=== PATIENT | male | born 1995 | race African-American/Black ===

== ENCOUNTER 2019-02-05 01:42 | Emergency (ER) | payer SELFPAY ==
[2019-02-05 01:49] VITALS: BP 180/105; PULSE 92; RESP 22; TEMP 37; O2SAT 99
[2019-02-05 02:10] LABS: Absolute Basophil Count 0.02 k/cumm (0.0-0.2); Absolute Eosinophil Count 0.06 k/cumm (0.0-0.7); Absolute Lymphocyte Count 2.05 k/cumm (1.2-3.4); Absolute Monocyte Count 0.48 k/cumm (0.11-0.7); Absolute Neutrophil Count 4.11 k/cumm (1.2-6.7); Basophils % 0.3; Eosinophils % 0.9; HCT 40.6 % (40.0-50.0); HGB 13.9 g/dL (13.5-17.5); Lymphocytes % 30.5; Mean Corp. HGB Concentration 34.2 g/dL (32.0-36.0); Mean Corpuscular Hemoglobin 27.3 pg (27.0-33.0); Mean Corpuscular Volume 79.6 fL (80-95); Mean Platelet Volume 9.4 fL (8.0-11.0); Monocytes % 7.1; Neutrophils % 61.2; Platelet Count 265 x1000/uL (130-400); RBC Distribution Width 14.5 % (11.8-14.1); White Blood Cell Count 6.72 k/cumm (4.4-10.8)
--- NOTE | 2019-02-05 02:28 | ED.GENADUL_ITS ---
Discharge Plan Disposition Patient Disposition: HOME Condition: Good Discharge Details Chief Complaint: PsychEval Clinical Impression: Depression, Laceration Primary Care Provider: None,None ED Provider: Kris Ortiz Home Meds and New Rx's Prescriptions: No Action No Known Home Meds RF: 0 Discharge Instructions Instructions: Care For Your Stitches (ED) Additional Instructions: Please leave the dressing on for 24 hours, then you may remove and begin cleaning the wound at least twice a day with soap and water. Do not directly soak the area. Watch for any signs of infection and return if any increasing redness, swelling, pain, drainage. Please return in 7 to 10 days to have the sutures removed. It is free of charge if you come back here to the ED. If you have any thoughts of self-harm, or you feel that you need assistance please return immediately for reassessment, help and assistance. Please follow- up with the professor of social work have been set up for you. If you notice any worsening of your symptoms, or any new symptoms such as vomiting, diarrhea, fever, chills, shortness of breath, chest pain, numbness, weakness, or fainting , please return immediately to the emergency department for reevaluation. Please follow up with your primary care provider as soon as possible for reassessment and reevaluation. As always, it was a pleasure participating in your medical care today. Medical Decision Making This is a 23-year-old male who presents with a self-imposed left wrist injury. Earlier today secondary to multiple stressors at home the patient cut his left wrist. He is right-hand dominant. Notable separation between the skin and fascial layers. No evidence of deep tendon, nerve or vessel involvement. He did not tend to harm himself. He denies any homicidal ideations. He denies trying to harm himself in any other ways. He denies any other illicit or alcohol drug use. Physical exam demonstrates a laceration contained to the skin levels, he demonstrates notably intact neurovascular exam with brisk capillary refill normal pulses, normal movement and strength of the hand wrist and fingers. Normal two-point discrimination. The area was sutured, with good wound edge reapproximation. His tetanus will be updated. We we will contact mental health for evaluation, start one-to-one observation, and order customary labs. Currently the patient is asking for help and assistance. He states that right now he does not want to take his life or harm himself anymore. 4 AM The patient has been seen and assessed by mental health. After prolonged discussion the patient still continues to deny any current homicidal or suicidal ideations. Mental health has spent a notable amount of time talking with the patient, discussing his thoughts, focusing on areas of need, and addressing them. At this time they do feel that he can be safely discharged home with close outpatient follow-up. The patient also feels comfortable with this as does his friends were at bedside. Patient will be discharged with close and follow-up. We discussed red flags for which to return, as well as treatment for his sutures. Recommend that he returns in 7 to 10 days for suture removal. I have extensively reviewed the treatment plan and discharge instructions with the patient. I have addressed all patient concerns at this time. The patient was made aware of what symptoms to monitor for that would warrant a return to the emergency department. Discussed the plan with the patient, they demonstrate verbal understanding and agreement with our assessment and plan at this time. Procedure: Suture Patient was positioned appropriately, 5cc lidocaine without epinephrine was used as a local anesthetic. Copious amounts of normal saline and chlorhexidine used for irrigation. Patient was sterile draped with wound exposed. 4-0 nylon with 7 simple interrupted sutures were placed with good approximation. Wound dressed with bacitracin/ sterile gauze. Estimated Blood Loss: 1ml The patient tolerated the procedure well and there were no complications. HPI General Date/Time Provider Initiated Documentation: 02/05/19 01:43 . HPI Narrative: This is a 23-year-old male who presents today for evaluation of left wrist injury and self-harm. Patient states that he has had a tremendous amount of stressors in his life as of late, and today slit his left wrist and attempt to hurt himself. He did cut his left wrist with a clean knife today. He denies any associated numbness or tingling. He denies any weakness in his hand. He is right-hand dominant. Patient states that currently he does not want to end his life, but he has had very confusing thoughts, and certainly wants to harm himself. He denies any homicidal ideations. He denies any auditory visual hallucinations. He denies any significant alcohol intake, or IV or illicit drug use recently. He denies any previous attempts at self-harm. Patient is unsure of his last tetanus shot. Related Data Home Medications Medication Instructions Recorded Confirmed Unknown [No Known Home Meds] 10/26/16 06/05/17 Allergies Allergy/AdvReac Type Severity Reaction Status Date / Time No Known Allergies Allergy Unverified 02/05/19 01:55 General Stated Complaint: PsychEval BRITT: 2 Review of Systems All systems reviewed & are unremarkable except as noted in HPI and below PFSH Social History Smoking/Tobacco Use Status: Current-Occasional Alcohol Intake: current Do you feel safe in your relationship?: Yes Exam Narrative Exam Narrative: 1.Const: Well-nourished, Well-developed, appearing stated age 2.Eyes: PERRL, no conjunctival injection, and symmetrical lids. 3.ENT: Atraumatic external nose and ears. Moist MM. Neck: Symmetric, trachea midline, No thyromegaly. 4.CVS: +S1/S2, No murmurs or gallops. Peripheral pulses 2+ and equal in all extremities. Brisk capillary refill in all extremities. 5.RESP: Unlabored respiratory effort. Clear to auscultation bilaterally. No wheezes rales or rhonchi 6.GI: Soft, Nontender/Nondistended, No hepatosplenomegaly. No guarding or rebound. 7.MSK: Left wrist demonstrates a linear 5.5 cm laceration over the ventral wrist, less rates the epidermis and dermis, and is clearly well differentiated from the fascia, tendons and ligaments. Minimal active bleeding. No evidence of tendon involvement. Left hand: Symmetrically palpable radial and ulnar pulses. Capillary refill less than 2 seconds to all digits. Intact sensation to light touch of the radial, median and ulnar nerves demonstrated by testing in the dorsal web space of the thumb, the distal palmar aspect of the index finger, and the lateral surface of the fifth finger. 2 point discrimination intact to 5mm (up to 6mm can be normal in digits 3-5) of discrimination in the affected digit. Intact motor function of the radial, median and ulnar nerves demonstrated by strength of extension of the isolated distal joint of the index finger, hand repairer welding equipment, and spreading of the 2nd through 5th digits. Intact recurrent median nerve as demonstrated by ability to move thumb fully through opposition, abduction and flexion. No snuffbox tenderness. 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 Sensation grossly intact, no focal neurologic deficits. 10.Psych: (AAO) x3. Flat affect, slightly depressed. Course Vital Signs Vital signs: Vital Signs Temperature 37.0 C 02/05/19 01:49 Pulse 92 H 02/05/19 01:49 Respiratory Rate 22 02/05/19 01:49 Blood Pressure 180/105 H 02/05/19 01:49 Pulse Oximetry 99 02/05/19 01:49 Temperature 37.0 C 02/05/19 01:49 Temperature Source Temporal Artery Scan 02/05/19 01:49 Pulse 92 H 02/05/19 01:49 Respiratory Rate 22 02/05/19 01:49 Respiratory Effort Non-Labored 02/05/19 01:56 Blood Pressure 180/105 H 02/05/19 01:49 Blood Pressure Position Sitting 02/05/19 01:49 Pulse Oximetry 99 02/05/19 01:49 Oxygen Delivery Method Room Air 02/05/19 01:49 Oxygen Flow Rate 0 02/05/19 01:49 Pain Level 0 02/05/19 02:11 Lab/Test Results Lab/Test Results: Laboratory Tests Range/Units 02/05/19 02:05 WBC (4.4-10.8) k/cumm 6.72 RBC (4.50-6.00) m/cumm 5.10 Hgb (13.5-17.5) g/dL 13.9 Hct (40.0-50.0) % 40.6 MCV (80-95) fL 79.6 L MCH (27.0-33.0) pg 27.3 MCHC (32.0-36.0) g/dL 34.2 RDW (11.8-14.1) % 14.5 H Plt Count (130-400) x1000/uL 265 MPV (8.0-11.0) fL 9.4 Immature Gran % 0.0 Neutrophils % 61.2 Lymphocytes % 30.5 Monocytes % 7.1 Eosinophils % 0.9 Basophils % 0.3 Absolute Neutrophils (1.2-6.7) k/cumm 4.11 Absolute Lymphocytes (1.2-3.4) k/cumm 2.05 Absolute Monocytes (0.11-0.7) k/cumm 0.48 Absolute Eosinophils (0.0-0.7) k/cumm 0.06 Absolute Basophils (0.0-0.2) k/cumm 0.02 Procedures Laceration Laceration 1: Site: hand Side (If applicable): left Size (cm): 5.5 Description: linear Depth: simple, single layer Local Anesthetic: Lidocaine 1% Amount of anesthesia used (mL): 5 Pre-repair: wound explored, irrigated extensively and deep structures intact Skin layer closed with: nylon Size (cm): 4-0 Number of sutures: 7 Technique: simple, interrupted
[2019-02-05 02:33] LABS: ALT 36 U/L (16-63); AST 25 U/L (15-37); Albumin 4.3 g/dL (3.4-5.0); Alkaline Phosphatase 96 U/L (46-116); Anion Gap 10.7 mmol/L (3-11); BUN 7 mg/dL (7-18); Bilirubin, Total 0.2 mg/dL (0.2-1.0); CO2 24.3 mmol/L (21.0-32.0); CREATININE 0.99 mg/dL (0.70-1.30); Calcium 9.1 mg/dL (8.5-10.1); Chloride 105 mmol/L (98-107); Glucose 106 mg/dL (70-100); Potassium 3.5 mmol/L (3.5-5.1); Sodium 140 mmol/L (136-145); TSH (W/Ref FT4) 3.24 uIU/mL (0.36-3.74); Total Protein 8.3 g/dL (6.4-8.2)
[2019-02-05 02:34] LABS: Salicylate < 2.8 mg/dL (2.8-20.0)
[2019-02-05 02:45] LABS: Acetaminophen < 2 ug/mL (10-30)
[2019-02-05 03:05] LABS: *AMPHETAMINES SCREEN URINE Negative (Negative); *BARBITURATES SCREEN URINE Negative (Negative); *BENZODIAZEPINES SCREEN URINE Negative (Negative); Cannabinoids THC POSITIVE (Negative); Cocaine Screen,Urine Negative (Negative); METHADONE URINE SCREEN Negative (Negative); OPIATES URINE SCREEN Negative (Negative); Tricyclic Antidepressants Negative (Negative)
--- NOTE | 2019-02-05 04:02 | PDOC.MHCN ---
Date of service: 02/05/19 Time of Service: 04:03 Mental Health Crisis Note Presenting Issue How did you arrive at the ED and why did you come: A arrived tonight via his friends. He is here after cutting his L wrist superficially. Precipitating Factors A admits that he was SI when he cut himself tonight but denied that he is now. He denied any hx of MH treatment. Disposition BEHAVIOR: Cooperative and engaged. EYE CONTACT: Good MOOD: depressed and anxious about upcoming court. AFFECT: flat APPETITE: A reported poor SLEEP(trouble falling/staying asleep: A denied he is getting much sleep Plan A is going home with his friends. His sister is coming later today and is going to assit him wiht applying for food stamps and medicaid. He was given numbers for NK should he feel SI again and for ongoing support if he needs. Provisional Diagnosis Depressive d/o unspecified Signature Clinician's Name/Title: Nellie Torres MS Emergency Services Clinician
[2019-02-05 04:21] VITALS: BP 148/84; PULSE 76; RESP 18; O2SAT 99
== END 2019-02-05 04:15 | disposition home or self-care (01) ==
PROVIDERS: Emergency Provider Student in an Organized Health Care Education/Training Program
DX: S61.512A Laceration without foreign body of left wrist, initial encounter (principal); F32.9 Major depressive disorder, single episode, unspecified; X78.1XXA Intentional self-harm by knife, initial encounter
CPT/HCPCS: 12002; 36415; 80053; 80307; 90471; 99284; 80320; 80329; 84443; 85025

== ENCOUNTER 2019-02-11 03:39 | Emergency (ER) | payer SELFPAY ==
[2019-02-11 03:43] VITALS: BP 145/94; PULSE 68; RESP 16; TEMP 36.5; O2SAT 100
--- NOTE | 2019-02-11 03:46 | ED.GENADUL_ITS ---
Discharge Plan Disposition Patient Disposition: HOME Condition: Good Discharge Details Chief Complaint: GenMedical Clinical Impression: External hemorrhoids Primary Care Provider: None,None ED Provider: Kris Ortiz Home Meds and New Rx's Prescriptions: New hydrocortisone [Anusol-HC] 2.5 % cream with perineal applicator 1 applic ND BID-QID PRN (Reason: hemorrhoids) Qty: 28.35 RF: 0 docusate sodium [Colace] 100 mg capsule 100 mg PO BID Qty: 60 RF: 0 Discharge Instructions Instructions: Hemorrhoids (ED) Additional Instructions: At this time you do have notable hemorrhoids. Please make sure that you keep your stool soft at all times with the Colace. Apply the hydrocortisone cream as directed. I would recommend taking hot baths tonight to help reduce the irritation and inflammation. He can also take Tylenol and Motrin as needed for pain and irritation. Please avoid any heavy lifting greater than 10 to 15 pounds. We will schedule a surgical follow-up for you for potential band ligation of the hemorrhoids. If you notice any worsening of your symptoms, or any new symptoms such as vomiting, diarrhea, fever, chills, shortness of breath, chest pain, numbness, weakness, or fainting , please return immediately to the emergency department for reevaluation. Please follow up with your primary care provider as soon as possible for reassessment and reevaluation. As always, it was a pleasure participating in your medical care today. Stand Alone Forms: Work Release Medical Decision Making This is a 21-year-old male who presents for evaluation of hemorrhoids. He recently went back to work and states that he has been doing some significant straining she is caused notable hemorrhoids. He describes it as an irritating sensation. Physical exam demonstrates 2 small to medium sized slightly tense hemorrhoids in the rectum, no evidence of rectal prolapse, bleeding or other abnormality. Hemorrhoids are not easily reduced. However there certainly none are large enough to require immediate or emergent excision or band ligation. We will prescribe Colace, hydrocortisone topical cream, recommend regular sitz baths, no heavy lifting greater than [address] to [address] a surgical referral for potential band ligation. Discussed the importance of adequate flui ds to prevent constipation or straining. I have extensively reviewed the treatment plan and discharge instructions with the patient. I have addressed all patient concerns at this time. The patient was made aware of what symptoms to monitor for that would warrant a return to the emergency department. Discussed the plan with the patient, they demonstrate verbal understanding and agreement with our assessment and plan at this time. HPI General Date/Time Provider Initiated Documentation: 02/11/19 03:39 . HPI Narrative: This is a 23-year-old male who presents today for evaluation of hemorrhoids. The patient states that he has been doing some significant straining as of late which is subsequently caused a hemorrhoid and subsequent irritation. He has not done anything to help with the symptoms. He denies any bleeding. He denies any recent diarrhea. Stool is slightly firmer. He states that he went back to work today and really pushed himself, and with significant straining had notable worsening of his hemorrhoids. He denies any other complaints at this time. No other modifying factors. Related Data Home Medications Medication Instructions Recorded Confirmed docusate sodium [Colace] 100 mg PO BID #60 cap 02/11/19 hydrocortisone [Anusol-HC] 1 applic ND BID-QID PRN #28.35 gm 02/11/19 Previous Rx's Medication Instructions Recorded docusate sodium [Colace] 100 mg PO BID #60 cap 02/11/19 hydrocortisone [Anusol-HC] 1 applic ND BID-QID PRN #28.35 gm 02/11/19 Allergies Allergy/AdvReac Type Severity Reaction Status Date / Time No Known Allergies Allergy Unverified 02/05/19 01:55 General BRITT: 2 Review of Systems All systems reviewed & are unremarkable except as noted in HPI and below PFSH Social History Smoking/Tobacco Use Status: Current-Occasional Alcohol Intake: never Substance use type: marijuana Do you feel safe at home: Yes Do you feel safe in your relationship?: Yes Exam Narrative Exam Narrative: 1.Const: Well-nourished, Well-developed, appearing stated age 2.Eyes: PERRL, no conjunctival injection, and symmetrical lids. 3.ENT: Atraumatic external nose and ears. Moist MM. Neck: Symmetric, trachea midline, No thyromegaly. 4.CVS: +S1/S2, No murmurs or gallops. Peripheral pulses 2+ and equal in all extremities. Brisk capillary refill in all extremities. 5.RESP: Unlabored respiratory effort. Clear to auscultation bilaterally. No wheezes rales or rhonchi 6.GI: Soft, Nontender/Nondistended, No hepatosplenomegaly. No guarding or rebound. Rectal exam was performed with female nurse at bedside. Rectum demonstrated no evidence of rectal prolapse. The patient did have 2 small slightly tense hemorrhoids which are not easily reduced. No active bleeding. Mild tenderness and irritation on palpation. No other significant abnormality in the rectal exam. 7.MSK: Normocephalic/Atraumatic, Extremities w/o deformity or ttp No cyanosis or clubbing, Normal movement of all extremities 8.Skin: Warm, Dry. No rashes or lesions. Patient's left wrist appears to be healing very well, sutures are intact, skin is clean dry and intact. We will reapproximated skin with no evidence of infection drainage or discharge. 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 Sensation grossly intact, no focal neurologic deficits. 10.Psych: (AAO) x3. Appropriate mood and affect
--- NOTE | 2019-02-11 03:55 | NUR.NOTE ---
Examined by MD Ortiz, discharge instructions reviewed with verbal understanding. aware to f/u with pcp and surgery. scripts given to pt. Ambulated to exit with steady gait
--- NOTE | 2019-02-11 20:15 | NUR.NOTE ---
Nursing Note: FAXED REFERAL 02/11/19
== END 2019-02-11 03:55 | disposition home or self-care (01) ==
LOC: ER 03:58
PROVIDERS: Emergency Provider Student in an Organized Health Care Education/Training Program
DX: K64.9 Unspecified hemorrhoids (principal)
CPT/HCPCS: 99282

== ENCOUNTER 2022-08-18 16:31 | Emergency (ER) | payer SELFPAY ==
--- NOTE | 2022-08-18 16:34 | ED.GENADUL_ITS ---
Discharge Plan Disposition Patient Disposition: Home Condition: Stable Discharge Details Clinical Impression: Exposure to STD Primary Care Provider: None,None ED Provider: Javad Driscoll Home Meds and New Rx's Prescriptions: New doxycycline hyclate 100 mg capsule 100 mg PO BID 7 Days Qty: 14 0RF Discharge Instructions Instructions: Sexually Transmitted Diseases (ED) Additional Instructions: Please follow-up with primary care physician. Please return to the emergency department for any worsening symptoms Medical Decision Making 26-year-old male presents with new sexual partner. New sexual partner is being treated empirically for gonococcal versus chlamydial infection. Patient would like to receive prophylactic antibiotics. Nontoxic resting comfortably. No acute distress. Will treat empirically with ceftriaxone and doxycycline. HPI General Date/Time Provider Initiated Documentation: 08/18/22 16:32 . HPI Narrative: 26-year-old male presents with new sexual partner who potentially has STI. Patient has no symptomatology at this time. Related Data Home Medications Medication Instructions Recorded Confirmed doxycycline hyclate 100 mg capsule 100 mg PO BID 7 days #14 caps 08/18/22 Previous Rx's Medication Instructions Recorded doxycycline hyclate 100 mg capsule 100 mg PO BID 7 days #14 caps 08/18/22 Allergies Allergy/AdvReac Type Severity Reaction Status Date / Time No Known Allergies Allergy Unverified 08/18/22 16:39 General BRITT: 2 Review of Systems Narrative: Review of Systems Constitutional: negative Eyes: negative ENT: negative Cardiovascular: negative Respiratory: negative Gastrointestinal: negative : negative Musculoskeletal: negative Skin: negative Neurologic: negative Psych: negative PFSH All Active Problems (Updated 08/18/22 @ 16:41 by Javad Driscoll MD) Exposure to STD (Acute) Social History Smoking/Tobacco Use Status: Current-Occasional Smoking risk assessment performed?: Yes Alcohol Intake: never Substance use type: marijuana Do you feel safe at home: Yes Do you feel safe in your relationship?: Yes Exam Narrative Exam Narrative: Physical Examination General: alert, awake, cooperative, resting comfortably, no acute distress
[2022-08-18 16:36] VITALS: BP 132/78; PULSE 60; RESP 14; TEMP 37.2; O2SAT 99
[2022-08-18] MEDS: Doxycycline Hyclate 100 MG CAP PO (17:12)
[2022-08-18] MEDS: cefTRIAXone 1 GM VIAL 0.5 GM IM (17:12)
[2022-08-18] MEDS: Lidocaine 1% Pres-Free 5 ML VIAL (17:12)
[2022-08-18 17:13] VITALS: BP 122/78; PULSE 75; RESP 18; TEMP 36.8; O2SAT 99
[2022-08-20 12:42] LABS: Chlamydia Result Negative (Negative); GC Result Negative (Negative)
== END 2022-08-18 17:14 | disposition home or self-care (01) ==
PROVIDERS: Emergency Provider Emergency Medicine
DX: Z20.2 Contact with and (suspected) exposure to infections with a predominantly sexual mode of transmission (principal)
CPT/HCPCS: 87491; 87591; 96372; 99283; 81003; J0696

== ENCOUNTER 2023-04-12 23:12 | Emergency (ER) | payer SELFPAY ==
[2023-04-12 23:16] VITALS: BP 169/82; PULSE 108; RESP 18; TEMP 36.6; O2SAT 97
--- NOTE | 2023-04-12 23:30 | RT.EKG_ITS ---
APPROVED REPORT Exam: Resting ECG Reason for Exam: chest pain Patient Location: E HR:93 bpm ECG Measurements Heart Rate 93 AXIS GA 127 P 46 QRSd 91 QRS 41 QT 340 T 24 QTc 422 Conclusion Sinus rhythm...normal P axis, V-rate 60- [address] segment or T wave abnormlaiteis to suggest occlusive NH.
--- NOTE | 2023-04-12 23:30 | DI.RAD_ITS ---
Exam(s) XR CHEST 2V PA LATERAL EXAM: XR CHEST 2V PA LATERAL CLINICAL HISTORY: chest pain, COVID + TECHNIQUE: 2D digital imaging was performed of the chest. Images were obtained. PA and lateral v iews were obtained. COMPARISON: CT CT CHEST PE CTA from 04/13/2023 FINDINGS: MEDIASTINUM: Normal. HEART: Normal. PULMONARY VASCULATURE: Normal. LUNGS: Clear. The patient's left upper lobe and lingular infiltrates are best appreciated on the CT scan of the chest. PLEURAL SPACE: No pleural effusion or pneumothorax. BONE:Within normal limits for the patient's age. OTHER FINDINGS:Normal. IMPRESSION: No acute pulmonary findings. The patient's left upper lobe and lingular infiltrates are best apprecia jasmin on the CT scan of the chest. DATA REPOSITORY: RADIATION DOSE DELIVERED:
--- NOTE | 2023-04-12 23:40 | W.ED.GENAD ---
HPI General Stated Complaint: RespSymp Mode of arrival: ambulatory. BRITT: 4 Date/Time Provider Initiated Documentation: 04/12/23 23:14. Limitations to Documentation: no limitations. Information obtained by: patient. HPI Narrative: 27yo previously healthy male tested + for Covid on 04/09/22 presenting with generalized malaise, body aches, chills, cough, and chest pain. Pain is dull, substernal, tight, constant, non-radiating, and slightly worse with deep inspiration. Mild shortness of breath, worse with exertion. No LE edema. He is otherwise in his usual state of health. Related Data Allergies Allergy/AdvReac Type Severity Reaction Status Date / Time No Known Allergies Allergy Unverified 08/18/22 16:39 Review of Systems Narrative: see HPI PFSH All Active Problems (Updated 04/12/23 @ 23:50 by Ana Lilia Lopez MD) COVID-19 (Acute) Social History Smoking/Tobacco Use Status: Current-Occasional Smoking risk assessment performed?: Yes Alcohol Intake: never Substance use type: marijuana Do you feel safe at home: Yes Do you feel safe in your relationship?: Yes Exam Narrative Exam Narrative: General: Alert, well appearing, well nourished, in no acute distress. Head: Normocephalic, atraumatic Neck: Trachea midline, ?Neck supple. Cardiac: ?RRR, no murmurs appreciated Resp: No respiratory distress. CTAB. Abd: ?Soft, non-distended, nontender Extremities: ?No deformities.? No peripheral edema. Neurologic: GCS 15. ? Moves all extremities freely against gravity Course Vital Signs Vital signs: Vital Signs Temperature 36.6 C 04/12/23 23:16 Pulse 108 H 04/12/23 23:16 Respiratory Rate 18 04/12/23 23:16 Blood Pressure 169/82 H 04/12/23 23:16 Pulse Oximetry 97 04/12/23 23:16 Temperature 36.6 C 04/12/23 23:16 Temperature Source Oral 04/12/23 23:16 Pulse 108 H 04/12/23 23:16 Respiratory Rate 18 04/12/23 23:16 Respiratory Effort Normal 04/12/23 23:22 Respiratory Depth Normal 04/12/23 23:22 Blood Pressure 169/82 H 04/12/23 23:16 Blood Pressure Position Sitting 04/12/23 23:16 Pulse Oximetry 97 04/12/23 23:16 Oxygen Delivery Method Room Air 04/12/23 23:16 Oxygen Flow Rate 0 04/12/23 23:16 Pain Level 8 04/12/23 23:16 Medical Decision Making 27yo previously healthy male tested + for Covid on 04/09/22 presenting with generalized malaise, body aches, chills, cough, and chest pain. Slightly tachycardiac after ambulating into triage and hypertensive on arrival, afebrile. No hypoxia, tachypnea, or increased work of breathing. Well appearing on exam. No respiratory distress. Given tylenol for symptoms. Low suspicion for ACS or PE however given symptoms will eval with labs, EKG, CXR. EKG sinus rhythm, no ST segment or T wave abnormalities to suggest occlusive [place]. CXR independently reviewed, no focal pneumonia or pneumothorax on my view, agree with radiology read below. Labs reviewed as below, CBC & CMP reassuring (mild leukocytosis), trop negative in the setting of 2 days of constant pain, would not further pursue ACS. Dimer slightly elevated; CTA ordered and independently reviewed, no saddle embolus on my view, agree with radiology read below. Limited study however based on symptoms/vital signs low suspicion for any significant pulmonary embolism. No risk factors to suggest benefit from Paxlovid. On reassessment he remains non-toxic appearing with reassuring vital signs, tachycardia resolved. Advised to followup with PCP regarding blood pressure, symptomatic treatment at home. Discharged home, discharge instructions and return precautions were reviewed with patient who verbalized understanding. All questions were answered and he is in full agreement with the plan. Imaging Data Radiologic Study: Imaging: X-Ray Radiologist's impression: IMPRESSION: 1. No active cardiopulmonary disease. Radiologic Study #2: Imaging: CT Scan Radiologist's impression: IMPRESSION: 1. Scattered patchy ground-glass opacities within the lungs. These findings are nonspecific and may represent hypoventilatory change,edema, hemorrhage, or an infectious/inflammatory process (acute or chronic). 2. There are diffuse interstitial infiltrates present. This may represent cardiogenic versus noncardiogenic edema. An acute inflammatory process and/or infectious process/pneumonia are not excluded. 3. Motion artifact limits this study and the results are insufficient for definitive exclusion of peripheral pulmonary emboli beyond the first and second order pulmonary arterial branches. No central or saddle emboli noted. No evidence of central lobar occlusive emboli. Segmental emboli cannot be ruled out. 4. Mildly enlarged lymph nodes present within the axillary regions bilaterally. Lab Data Lab results reviewed: Yes I reviewed the patient's lab results. Labs: Laboratory Tests Range/Units 04/12/23 04/12/23 23:19 23:54 WBC (4.4-10.8) 10^3/uL 12.77 H RBC (4.36-5.78) 10^6/uL 5.17 Hgb (13.5-17.5) g/dL 13.6 Hct (40.0-50.0) % 42.1 MCV (80-95) fL 81 MCH (27.0-33.0) pg 26.3 L MCHC (32.0-36.0) % 32.3 RDW (11.8-14.1) % 13.6 Plt Count (130-400) 10^3/uL 312 MPV (8.0-11.0) fL 9.4 Immature Gran % 0.0 Neutrophils % 80.0 Lymphocytes % 13.0 Monocytes % 5.0 Eosinophils % 2.0 Basophils % 0.0 Nucleated RBC % (0.0-0.3) % 0.0 Absolute Neutrophils (1.2-6.7) 10^3/uL 10.22 H Absolute Lymphocytes (1.2-3.4) 10^3/uL 1.66 Absolute Monocytes (0.1-0.8) 10^3/uL 0.64 Absolute Eosinophils (0.0-0.7) 10^3/uL 0.26 Absolute Basophils (0.0-0.2) 10^3/uL 0.00 RBC Morphology Normal D-Dimer (<500) ng/mlFEU 553 H Sodium (136-145) mmol/L 139 Potassium (3.5-5.1) mmol/L 4.1 Chloride (98-107) mmol/L 102 Carbon Dioxide (21.0-32.0) mmol/L 25.8 Anion Gap (3-11) mmol/L 11.2 H BUN (7-18) mg/dL 14 Creatinine (0.70-1.30) mg/dL 1.1 Est GFR (CKD-EPI 2020) (mL/min/1.73m2) 94.95 Glucose (74-106) mg/dL 136 H Calcium (8.5-10.1) mg/dL 9.2 Total Bilirubin (0.2-1.0) mg/dL 0.2 AST (15-37) U/L 29 ALT (16-63) U/L 46 Alkaline Phosphatase (46-116) U/L 109 Troponin I (<or=60) ng/L < 50 Total Protein (6.4-8.2) g/dL 8.7 H Albumin (3.4-5.0) g/dL 3.3 L COVID-19 Source Nasopharynx SARS-CoV-2 (PCR) (Negative) Negative Influenza Type A (PCR) (Negative) Negative Influenza Type B (PCR) (Negative) Negative RSV (PCR) (Negative) Negative Quality:SDOH Health Related Social Needs: No Data to Display Discharge Plan Disposition Patient Disposition: Home Condition: Good Discharge Details Clinical Impression: COVID-19 Primary Care Provider: Katharina,Local ED Provider: Ana Lilia Lopez Discharge Instructions Instructions: Chest Pain (ED), COVID-19 (Coronavirus Disease 2019) (ED) Additional Instructions: Call your primary care doctor today to schedule an appointment for within the next 5 days to follow up on your visit here. Discuss your blood pressure at that visit. Return to the emergency department for new or worsening symptoms. Stand Alone Forms: Work Release
[2023-04-13 00:03] LABS: Abs Immature Grans 0.09 10^3/uL (0.0-0.06); HCT 42.1 % (40.0-50.0); HGB 13.6 g/dL (13.5-17.5); MCH 26.3 pg (27.0-33.0); MCHC 32.3 % (32.0-36.0); MCV 81 fL (80-95); MPV 9.4 fL (8.0-11.0); Platelet Count 312 10^3/uL (130-400); RBC 5.17 10^6/uL (4.36-5.78); RDW 13.6 % (11.8-14.1); RDW-SD 40.4 fL; WBC 12.77 10^3/uL (4.4-10.8)
[2023-04-13 00:08] LABS: COVID-19 PCR Negative (Negative); Influenza A PCR Negative (Negative); Influenza B PCR Negative (Negative); RSV PCR Negative (Negative)
[2023-04-13 00:15] LABS: Source Nasopharynx
[2023-04-13 00:20] LABS: ALT 46 U/L (16-63); AST 29 U/L (15-37); Albumin 3.3 g/dL (3.4-5.0); Alkaline Phosphatase 109 U/L (46-116); Anion Gap 11.2 mmol/L (3-11); BUN 14 mg/dL (7-18); Bilirubin, Total 0.2 mg/dL (0.2-1.0); CO2 25.8 mmol/L (21.0-32.0); CREATININE 1.1 mg/dL (0.70-1.30); Calcium 9.2 mg/dL (8.5-10.1); Chloride 102 mmol/L (98-107); Estimated GFR 94.95 (mL/min/1.73m2); Glucose 136 mg/dL (74-106); Potassium 4.1 mmol/L (3.5-5.1); Sodium 139 mmol/L (136-145); Total Protein 8.7 g/dL (6.4-8.2); Troponin I < 50 ng/L (<or=60)
--- NOTE | 2023-04-13 00:23 | DI.VRAD_ITS ---
PROCEDURE INFORMATION: Exam: XR Chest Exam date and time: 04/12/2023 11:47 PM Age: 27 years old Clinical indication: Other: Chest pain, covid + TECHNIQUE: Imaging protocol: Radiologic exam of the chest. Views: 2 views. COMPARISON: CT RENAL COLIC WO CONTRAST 06/05/2017 9:05 AM FINDINGS: Lungs: There is no evidence of focal pulmonary consolidation. The pulmonary vasculature is normal. Pleural spaces: There is no evidence of pneumothorax. There are no pleural effusions present. Heart/Mediastinum: The cardiac silhouette is within normal limits. The mediastinum is normal. Bones/joints: The spine, sternum, ribs, and pectoral girdles show no evidence of acute abnormality Soft tissues: There are no soft tissue masses or calcifications. IMPRESSION: 1. No active cardiopulmonary disease. Dictated and Authenticated by: Ahmet Allen MD. Ordering:LANIE Sung MD
[2023-04-13 00:24] LABS: Absolute Eosinophil Count 0.26 10^3/uL (0.0-0.7); Absolute Lymphocyte Count 1.66 10^3/uL (1.2-3.4); Absolute Monocyte Count 0.64 10^3/uL (0.1-0.8); Absolute Neutrophil Count 10.22 10^3/uL (1.2-6.7)
[2023-04-13 00:25] LABS: Diff Comment Manual Differential; RBC Morphology Normal
--- NOTE | 2023-04-13 00:45 | DI.CT_ITS ---
Exam(s) CT CHEST PE CTA EXAM: CT CHEST PE CTA CLINICAL HISTORY: SOB, elevated dimer, tachycardia. TECHNIQUE: Imaging Protocol: Axial CT angiography was performed with multi-slice acquisition and mu lti-planar and/or 3D reconstructions. CONTRAST MATERIAL: Intravenous: Omnipaque 350 contrast volume:70 mL COMPARISON: CT RENAL COLIC WO CONTRAST from 10/26/2016 CT RENAL COLIC WO CONTRAST from 06/05/2017 CR,XR XR CHEST 2V PA LATERAL from 04/12/2023 FINDINGS: The examination is limited due to patient motion artifact and poor inspiration. Tracheobronchial tree: Patent where visualized. Pulmonary parenchyma: There is a left upper lobe and left lingular infiltrate concerning for pneumoni a. No architectural distortion. Pulmonary Arteries: Pulmonary artery evaluation is limited by patient motion artifact. No large centr al pulmonary embolism is present. Mediastinum and Addis: No dominant adenopathy or fluid collection. The esophagus is unremarkable. Visualized thyroid gland: Unremarkable. Pleura: No effusion or pneumothorax. Heart: The heart is not dilated. No coronary artery calcifications are seen. No pericardial effusion. Aorta: Thoracic aorta non-dilated. No evidence of dissection. Upper abdomen: Unremarkable. Soft tissues: Unremarkable. Bones: Within normal limits for the patient's age. IMPRESSION: 1. Pulmonary artery evaluation is limited by patient motion artifacts. No large central pulmonary emb olism or saddle embolus is identified. 2. Left upper lobe and left lingular infiltrate concerning for pneumonia. 3. Examination limited by patient motion artifact. There is also poor inspiration. RADIATION DOSE DELIVERED: 370.18mGy.cm Total DLP DATA REPOSITORY: All CT scans at this facility are submitted to the National Radiology Data Registry (NRDR) Dose Index Registry (DIR) with the [employer] (A[employer]). RADIATION OPTIMIZATION: All CT scans at this facility use at least one of these dose optimization te chniques: automated exposure control; mA and/or kV adjustment per patient size (includes targeted exa ms where dose is matched to clinical indication); or iterative reconstruction.
[2023-04-13 00:47] LABS: D-Dimer 553 ng/mlFEU (<500)
[2023-04-13] MEDS: Omnipaque 350 MG/ML 100 ML BTL IJ (01:25)
[2023-04-13] MEDS: Normal Saline - Diluent 50 ML VIAL IJ (01:26)
--- NOTE | 2023-04-13 01:34 | DI.VRAD_ITS ---
PROCEDURE INFORMATION: Exam: CTA Chest With Contrast Exam date and time: 04/13/2023 12:55 AM Age: 27 years old Clinical indication: Other: SOB, elevated dimer, tachycardia TECHNIQUE: Imaging protocol: Computed tomographic angiography of the chest with contrast. Exam focused on the arteries. 3D rendering (Not supervised by radiologist): MIP and/or 3D reconstructed images were created by the technologist. Contrast material: 350; Contrast volume: 70 ml; Contrast route: INTRAVENOUS (IV); COMPARISON: CR XR CHEST 2V PA LATERAL 04/12/2023 11:47 PM FINDINGS: Pulmonary arteries: Motion artifact limits this study and the results are insufficient for definitive exclusion of peripheral pulmonary emboli beyond the first and second order pulmonary arterial branches. No central or saddle emboli noted. No evidence of central lobar occlusive emboli. Segmental emboli cannot be ruled out. Aorta: No aortic aneurysm. No aortic dissection. No significant atherosclerosis. Lungs: Scattered patchy ground-glass opacities within the lungs. These findings are nonspecific and may represent hypoventilatory change,edema, hemorrhage, or an infectious/inflammatory process (acute or chronic). There are diffuse interstitial infiltrates present. This may represent cardiogenic versus noncardiogenic edema. An acute inflammatory process and/or infectious process/pneumonia are not excluded. Pleural spaces: There is no evidence of pneumothorax. There are no pleural effusions present. Heart: The right ventricular to left ventricular ratio is normal measuring 0.9. No evidence of reflux of contrast into the inferior vena cava or hepatic veins to suggest right heart strain or pulmonary hypertension. The cardiac structures are normal. Coronary arteries: No evidence of significant coronary artery atherosclerotic plaque or calcification. Lymph nodes: There is no evidence of mediastinal lymphadenopathy. Mildly enlarged lymph nodes present within the axillary regions bilaterally. Bones/joints: The skeletal structures and soft tissues show no evidence of fracture or other acute processes. Soft tissues: The soft tissues of the extrathoracic region are unremarkable. IMPRESSION: 1. Scattered patchy ground-glass opacities within the lungs. These findings are nonspecific and may represent hypoventilatory change,edema, hemorrhage, or an infectious/inflammatory process (acute or chronic). 2. There are diffuse interstitial infiltrates present. This may represent cardiogenic versus noncardiogenic edema. An acute inflammatory process and/or infectious process/pneumonia are not excluded. 3. Motion artifact limits this study and the results are insufficient for definitive exclusion of peripheral pulmonary emboli beyond the first and second order pulmonary arterial branches. No central or saddle emboli noted. No evidence of central lobar occlusive emboli. Segmental emboli cannot be ruled out. 4. Mildly enlarged lymph nodes present within the axillary regions bilaterally. Dictated and Authenticated by: Ahmet Allen MD. Ordering:LANIE Sung MD
== END 2023-04-13 01:44 | disposition home or self-care (01) ==
PROVIDERS: Emergency Provider Student in an Organized Health Care Education/Training Program
DX: U07.1 COVID-19 (principal); R52 Pain, unspecified; R05.1 Acute cough; R07.89 Other chest pain; R53.81 Other malaise; I10 Essential (primary) hypertension
CPT/HCPCS: 71275; 80053; 87637; 93005; 99285; 71046; 84484; 85025; 85379; 93010; 99283; J3490

== ENCOUNTER 2023-05-02 21:56 | Emergency (ER) | payer SELFPAY ==
[2023-05-02] VITALS (21 sets, daily range): BP systolic 151–183; BP diastolic 79–137; PULSE 57–91; RESP 13–20; O2SAT 94–100
--- NOTE | 2023-05-02 22:00 | RT.EKG_ITS ---
APPROVED REPORT Exam: Resting ECG Reason for Exam: overdose Patient Location: E HR:71 bpm ECG Measurements Heart Rate 71 AXIS CA 150 P 49 QRSd 96 QRS 44 QT 413 T 16 QTc 450 Conclusion Sinus rhythm...normal P axis, V-rate 60- 99 Q waves in II, III, aVF, V5-V6 nonspecific conduction delay, nonspecific conduction delay. T wave fla ttening in III, normal intervals, no STEMI, no change from previous.
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
[2023-05-02] MEDS: Naloxone 0.4 MG/ML VIAL IVP (22:15)
[2023-05-02 22:24] LABS: Abs Immature Grans 0.03 10^3/uL (0.0-0.06); Absolute Basophil Count 0.05 10^3/uL (0.0-0.2); Absolute Eosinophil Count 0.11 10^3/uL (0.0-0.7); Absolute Lymphocyte Count 2.84 10^3/uL (1.2-3.4); Absolute Monocyte Count 0.84 10^3/uL (0.1-0.8); Absolute Neutrophil Count 7.59 10^3/uL (1.2-6.7); Basophils % 0.4; HCT 41.7 % (40.0-50.0); HGB 13.5 g/dL (13.5-17.5); Immature Grans % 0.3; Lymphocytes % 24.8; MCH 25.9 pg (27.0-33.0); MCHC 32.4 % (32.0-36.0); MCV 80 fL (80-95); MPV 9.5 fL (8.0-11.0); Monocytes % 7.3; Neutrophils % 66.2; Platelet Count 349 10^3/uL (130-400); RBC 5.22 10^6/uL (4.36-5.78); RDW 13.9 % (11.8-14.1); WBC 11.46 10^3/uL (4.4-10.8)
--- NOTE | 2023-05-02 22:28 | DI.RAD_ITS ---
Exam(s) XR PORTABLE CHEST AP EXAM: XR PORTABLE CHEST AP CLINICAL HISTORY: altered mental status TECHNIQUE: 2D digital imaging was performed of the chest. One image was obtained. An AP view was ob tained. COMPARISON: CR,XR XR CHEST 2V PA LATERAL from 04/12/2023 FINDINGS: MEDIASTINUM: Normal. HEART: Normal. PULMONARY VASCULATURE: Normal. LUNGS: Clear. PLEURAL SPACE: No pleural effusion or pneumothorax. BONE:Within normal limits for the patient's age. OTHER FINDINGS:Normal. IMPRESSION: No acute pulmonary findings. DATA REPOSITORY: RADIATION DOSE DELIVERED:
[2023-05-02 22:40] LABS: ALT 32 U/L (16-63); AST 22 U/L (15-37); Albumin 3.7 g/dL (3.4-5.0); Alkaline Phosphatase 94 U/L (46-116); Anion Gap 9.4 mmol/L (3-11); BUN 12 mg/dL (7-18); Bilirubin, Total 0.2 mg/dL (0.2-1.0); CO2 27.6 mmol/L (21.0-32.0); Calcium 9.3 mg/dL (8.5-10.1); Chloride 101 mmol/L (98-107); Estimated GFR 106.45 (mL/min/1.73m2); Glucose 159 mg/dL (74-106); Potassium 3.5 mmol/L (3.5-5.1); Sodium 138 mmol/L (136-145); Total Protein 8.9 g/dL (6.4-8.2); Troponin I < 50 ng/L (< or =60)
[2023-05-02 22:43] LABS: Salicylate < 2.8 mg/dL (<2.8)
[2023-05-02 22:44] LABS: Acetaminophen < 2 ug/mL (10-30)
[2023-05-02 22:48] LABS: ETHANOL BLOOD < 3.0 mg/dL (<10)
--- NOTE | 2023-05-02 22:54 | DI.VRAD_ITS ---
PROCEDURE INFORMATION: Exam: XR Chest Exam date and time: 05/02/2023 10:24 PM Age: 27 years old Clinical indication: Other: Altered mental status TECHNIQUE: Imaging protocol: Radiologic exam of the chest. Views: 1 view. COMPARISON: CT CHEST PE CTA 04/13/2023 12:55 AM FINDINGS: Lungs: No consolidation. Pleural spaces: No pleural effusion. No pneumothorax. Heart/Mediastinum: No cardiomegaly. Bones/joints: No acute fracture. IMPRESSION: Negative portable chest. Dictated and Authenticated by: Tere Lizama MD. Ordering:ERNESTO Wilks MD
[2023-05-03] VITALS (31 sets, daily range): BP systolic 136–158; BP diastolic 68–81; PULSE 58–99; RESP 12–16; O2SAT 99
[2023-05-03 01:13] LABS: Troponin I < 50 ng/L (< or =60)
--- NOTE | 2023-05-05 09:36 | NUR.NOTE ---
Accessed chart to determine orders for EKG and to determine whether or not one needs to be cancelled. Duplicate order cancelled. Nursing Note:
== END 2023-05-03 02:53 | disposition home or self-care (01) ==
PROVIDERS: Emergency Provider Emergency Medicine Emergency Medical Services
DX: T40.2X1A Poisoning by other opioids, accidental (unintentional), initial encounter (principal); R40.0 Somnolence; R01.1 Cardiac murmur, unspecified; F17.200 Nicotine dependence, unspecified, uncomplicated; Y92.810 Car as the place of occurrence of the external cause
CPT/HCPCS: 80053; 93005; 99283; 71045; 80320; 80329; 83735; 84484; 85025; 93010; J2310

== ENCOUNTER 2023-06-27 21:26 | Outpatient (REF) | payer MEDICAID, SELFPAY ==
[2023-06-30 14:02] LABS: Chlamydia Result Negative (Negative)
[2023-06-30 15:46] LABS: GC Result Positive (Negative)
== END 2023-06-27 21:27 | disposition home or self-care (01) ==
LOC: LBN 21:26
PROVIDERS: Visit Provider Physician Assistant Medical
DX: Z20.9 Contact with and (suspected) exposure to unspecified communicable disease (principal)
CPT/HCPCS: 87491; 87591

== ENCOUNTER 2023-06-29 12:20 | Emergency (ER) | payer MEDICAID, SELFPAY ==
[2023-06-29 12:30] VITALS: BP 141/73; PULSE 71; RESP 18; TEMP 36.6; O2SAT 100
--- NOTE | 2023-06-29 12:41 | ED.GENADUL_ITS ---
Discharge Plan Disposition Patient Disposition: Home Condition: Stable Discharge Details Clinical Impression: Gonorrhea Primary Care Provider: Unknown,Unknown ED Provider: Kris Polk Home Meds and New Rx's Prescriptions: No Action No Known Home Meds Discharge Instructions Instructions: Gonorrhea (ED) Additional Instructions: You were seen in the emergency department for your likely STI of gonorrhea. We are treating him with a single dose of IM ceftriaxone, please refrain from intercourse for a few days after taking this, take Tylenol and ibuprofen as nee ded. Please return to the ED for continued symptoms especially with fever, discharge, testicular pain. Discharge Data Discharge Date/Time-TO BE ENTERED AT DEPARTURE: 06/29/23 13:21 HPI General Date/Time Provider Initiated Documentation: 06/29/23 12:25 . HPI Narrative: 27 year-old male presents to ED today by POV/ambulating with his girlfriend with a chief complaint of partner tested positive for gonorrhea, received IM ceftriaxone- but she has not been treated and he had a repeat exposure. Quality described as currently asymptomatic, no radiation to discharge, fever, body aches, testicular pain, abdominal pain, dysuria. Severity is described as 0/10. Palliating factors include nothing specific. Provoking factors include nothing specific. Has pending gonorrhea test send-out. Patient not anticoagulated. Related Data Home Medications Medication Instructions Recorded Confirmed Unknown [No Known Home Meds] 05/02/23 06/29/23 Allergies Allergy/AdvReac Type Severity Reaction Status Date / Time No Known Allergies Allergy Unverified 06/29/23 12:33 General Stated Complaint: Male Reproductive Problem BRITT: 4 Review of Systems All systems reviewed & are unremarkable except as noted in HPI and below Exam Narrative Exam Narrative: GENERAL APPEARANCE: Well-nourished, non-toxic, awake and alert, atraumatic, no acute distress. SKIN: Warm, pink, dry, intact, without rashes/lesions/ulcerations. HEAD: Normocephalic, atraumatic, normal hair distribution for gender/age. EYES: Pupils PERRLA, EOMs intact without nystagmus, normal conjunctiva, no exudates on lids/lashes. ENT: Nares patent, no circumoral cyanosis, no facial swelling NECK: Supple, trachea midline, painless cervical ROM. LUNGS/CHEST: Non-labored respirations, normal A/P diameter, symmetrical expansion, no chest wall deformity HEART (CV/PV): No peripheral edema, no JVD. ABDOMEN: Soft, non-distended, no guarding. MSK: Normal ROM, no swelling/deformity to bilateral UEs or LEs, moving all extremities without weakness, no cyanosis, spine midline without tenderness, normal curvature. NEURO: Mental Status AAOx4 - alert to person, place, time, events No facial droop, no forehead involvement. Motor: No focal weakness - strength 5/5 in bilateral UEs and LEs, proximal and distal, symmetric. Sensory: sensation intact to light touch globally. Gait normal: patient ambulated without ataxia into ED room. PSYCH: euthymic, cooperative, pleasant, appropriate speech Course Vital Signs Vital signs: Vital Signs Temperature 36.6 C 06/29/23 12:30 Pulse 71 06/29/23 12:30 Respiratory Rate 18 06/29/23 12:30 Blood Pressure 141/73 H 06/29/23 12:30 Pulse Oximetry 100 06/29/23 12:30 Temperature 36.6 C 06/29/23 12:30 Temperature Source Temporal Artery Scan 06/29/23 12:30 Pulse 71 06/29/23 12:30 Respiratory Rate 18 06/29/23 12:30 Respiratory Effort Normal, Non-Labored 06/29/23 12:33 Blood Pressure 141/73 H 06/29/23 12:30 Blood Pressure Position Sitting 06/29/23 12:30 Pulse Oximetry 100 06/29/23 12:30 Oxygen Delivery Method Room Air 06/29/23 12:30 Oxygen Flow Rate 0 06/29/23 12:30 Pain Level 0 06/29/23 12:30 Medical Decision Making This dictation utilizes [id number] dictation software and may contain unedited grammatical errors. 27 y/o M presents to ED today with a chief complaint of partner having tested positive for gonorrhea, he had empiric treatment, but re-exposed and partner has not been treated. No focal complaints at this time. Patients' medical history: noncontributory. Family and social history: noncontributory. Pertinent exam findings / vital signs include nontoxic vitals, deferred pelvic exam today for empiric treatment per patient preference after risk discussion. Differential / pathologies of concern include Gonorrhea, STI. Diagnostic studies of: -none- already has pending send-out. Interventions of: -500mg IM ceftriaxone. ED Course/Assessment/Plan: 27-year-old male presents with complaint of needing empiric treatment for gonorrhea for second time after his partner has not been treated and they engaged in intercourse again. He presents with a partner at this time for the both to be treated. I counseled him on strict return criteria for any failure to improve or worsening symptoms despite treatment like fever, testicular pain, discharge, dysuria. Findings not consistent with sepsis- nontoxic vitals, patient requesting repeat IM ceftriaxone, no other complaints to suspect toxic etiology at this time. Disposition of Gonorrhea. Patient verbalized understanding of the plan and return to ED criteria and engaged in shared decision making. Medical Records Medical records reviewed: Yes I reviewed the patient's medical records. Lab Data Lab results reviewed: Yes I reviewed the patient's lab results. Lab results narrative: Pending NG/GC send-out Quality:SDOH Health Related Social Needs: Health related social needs details Likely opiate use disorder PFSH All Active Problems (Updated 06/29/23 @ 12:58 by DEVON Pabon) Gonorrhea (Acute) COVID-19 (Acute) Social History Smoking/Tobacco Use Status: Current-Occasional Tobacco Type: cigarettes Smoking risk assessment performed?: Yes Alcohol Intake: never Drug use: Occasionally Substance use type: marijuana Do you feel safe at home: Yes Do you feel safe in your relationship?: Yes
[2023-06-29] MEDS: cefTRIAXone 1 GM VIAL 0.5 GM IM (13:20)
== END 2023-06-29 13:21 | disposition home or self-care (01) ==
LOC: ER 13:32
PROVIDERS: Emergency Provider Physician Assistant
DX: Z20.2 Contact with and (suspected) exposure to infections with a predominantly sexual mode of transmission (principal); F17.210 Nicotine dependence, cigarettes, uncomplicated
CPT/HCPCS: 96372; 99283; J0696

== ENCOUNTER 2023-07-03 21:26 | Emergency (ER) | payer MEDICAID, SELFPAY ==
[2023-07-03 21:28] VITALS: PULSE 68; RESP 16; TEMP 36; O2SAT 100
--- NOTE | 2023-07-03 22:00 | RT.EKG_ITS ---
APPROVED REPORT Exam: Resting ECG Reason for Exam: caustic ingestion Patient Location: E HR:58 bpm ECG Measurements Heart Rate 58 AXIS MN 150 P 37 QRSd 82 QRS 50 QT 391 T 23 QTc 385 Conclusion Sinus bradycardia...rate< [address] segment or T wave abnormalities to suggest occlusive [place]
--- NOTE | 2023-07-03 22:00 | DI.RAD_ITS ---
Exam(s) XR CHEST 2V PA LATERAL EXAM: XR CHEST 2V PA LATERAL CLINICAL HISTORY: bleach ingestion TECHNIQUE: 2D digital imaging was performed of the chest. Two images were obtained. PA and lateral views were obtained. COMPARISON: CR,XR XR CHEST 2V PA LATERAL from 04/12/2023 FINDINGS: MEDIASTINUM: Normal. HEART: Normal. PULMONARY VASCULATURE: Normal. LUNGS: Clear. PLEURAL SPACE: No pleural effusion or pneumothorax. BONE:Within normal limits for the patient's age. OTHER FINDINGS:Normal. IMPRESSION: No acute pulmonary findings. DATA REPOSITORY: RADIATION DOSE DELIVERED:
--- NOTE | 2023-07-03 22:06 | W.ED.GENAD ---
Discharge Plan Disposition Patient Disposition: Against Medical Advice Condition: Improving Discharge Details Clinical Impression: Accidental ingestion of caustic alkali Primary Care Provider: Unknown,Unknown ED Provider: Ana Lilia Lopez Home Meds and New Rx's Prescriptions: No Action No Known Home Meds Discharge Instructions Additional Instructions: Please return to the emergency department immediately if you change your mind, or if you develop pain or tightness in your throat or chest, difficultly breathing, vomiting, or if you feel unwell. Please call your primary care doctor today to schedule an appointment for today to followup on your visit today. You can also reach Poison Control at if you have questions. HPI General Mode of arrival: ambulatory. Date/Time Provider Initiated Documentation: 07/03/23 21:27. Limitations to Documentation: no limitations. Information obtained by: patient and family. HPI Narrative: 27yo M previously healthy male presenting after inadvertently ingesting bathroom loom cleaner. Was mixing clorox bathroom loom cleaner from spray bottle with water, 50/50, into a gallon jug. Subsequently confused this jug with his water bottle and took a large drink, multiple swallows, estimates about ~6-8 ounces. Vomited immediately afterwards; vomit smelled like bathroom loom cleaner. Continued nausea, no further vomiting. Did feel some chest pain and shortness breath immediately during the event and after vomiting, since resolved. Nose and throat are stinging. Did not get any fluid in his eyes or nose. No difficulty swallowing. Denies any intentional ingestion or attempt at self harm; significant other at bedside has no concerns. He is otherwise in his usual state of health with no fevers, chills, rash, abdominal pain, numbness, weakness, or other concerns. Related Data Home Medications Medication Instructions Recorded Confirmed Unknown [No Known Home Meds] 05/02/23 07/03/23 Allergies Allergy/AdvReac Type Severity Reaction Status Date / Time No Known Allergies Allergy Unverified 07/03/23 21:31 General Stated Complaint: Headache BRITT: 4 Review of Systems Narrative: see HPI Exam Narrative Exam Narrative: General: Alert, well appearing, well nourished, in no acute distress. Spitting into emesis bag. Head: Normocephalic, atraumatic Neck: Trachea midline, ?Neck supple. ENT: ?MMM.? Uvula midline, slightly erythematous, not swollen. Otherwise no oropharygeal lesions or exudate. Cardiac: ?RRR, no murmurs appreciated Resp: No respiratory distress. CTAB. No stridor. No drooling. Abd: ?Soft, non-distended, nontender Extremities: ?No deformities.? No peripheral edema. Neurologic: GCS 15. ? Moves all extremities freely against gravity Course Vital Signs Vital signs: Vital Signs Temperature 36 C L 07/03/23 21:28 Pulse 68 07/03/23 21:28 Respiratory Rate 16 07/03/23 21:28 Pulse Oximetry 100 07/03/23 21:28 Temperature 36 C L 07/03/23 21:28 Temperature Source Tympanic 07/03/23 21:28 Pulse 68 07/03/23 21:28 Respiratory Rate 16 07/03/23 21:28 Respiratory Effort Normal 07/03/23 21:32 Blood Pressure Position Sitting 07/03/23 21:28 Pulse Oximetry 100 07/03/23 21:28 Oxygen Delivery Method Room Air 07/03/23 21:28 Oxygen Flow Rate 0 07/03/23 21:28 Pain Level 9 07/03/23 21:32 Medical Decision Making 27yo M previously healthy male presenting after inadvertently ingesting bathroom loom cleaner. Denies any intentional ingestion or intent to self harm. Reports he was mixing clorox bathroom loom cleaner spray without bleach from spray bottle with water, 50/50, into a gallon jug. Subsequently confused this jug with his water bottle and took a large drink, multiple swallows, estimates about ~6-8 ounces. Vomited immediately afterwards. No further vomiting. Did feel some chest pain and shortness breath immediately during the event and after vomiting, since resolved. Vital signs reassuring on arrival, no respiratory distress, no stridor, no drooling. Uvula midline, slightly erythematous, not swollen. Otherwise no oropharygeal lesions or exudate. EKG sinus bradycardia, appropriate intervals, no ST segment or T wave abnormalities to suggest occluisve NV. CXR independently reviewed, no pneumothorax or pneumomediastinum on my view, agree with radiology read below. Labs reviewed as below, CBC & CMP reassuring with no actionable abnormalities, VBG with normal pH, lactate normal. Discussed with Poison Control; substance patient ingested has alkali ingredients, PH of ~11. Given patient drank diluted solution unclear concentration of what he actually ingested. They advised consulting GI to discuss whether upper endoscopy would be indicated, repeat CMP in 4 hours to evaluate for any developing acidosis, observation for at least 6 hours from the event. Discussed with Dr. Urbano [facility]; advised to consider upper endoscopy on a non-emergent basis within the next 48 hours especially if remains symptomatic however no strong evidence either way for scope vs no scope. On reassessment patient reports feeling much improved. Denies any pain in throat or chest. I discussed with Mr. Wing the option for pursuing EGD; he emphatically does not want to be hospitalized or transferred for such. He is amenable to continued observation in the ED and repeat bloodwork. Will trial PO given his improvement in symptoms. Tolerated PO fluids without difficulty. Subsequently stated he wanted to leave, refuses to have repeat bloodwork. I discussed with Mr. Wing my concerns for potential developing acidosis or esophageal chemical injury; he verbalized understanding of the risks including and/or permanent disability however was not willing to stay as he no longer wants to be here and feels better. He demonstrates capacity to make his own decisions and I have no indication that this was an attempt at self injury (though I do see on [facility] record review he has a history of cutting behavior, he emphatically denies any SI with this event and his significant other has no concerns) and so I have no grounds to hold him against his will. He was encouraged to return if he changes his mind or if his symptoms return. Discharged AMA, discharge instructions and return precautions were reviewed with patient who verbalized understanding. All questions were answered. Medical Records Medical records reviewed: Yes I reviewed the patient's medical records. Lab Data Lab results reviewed: Yes I reviewed the patient's lab results. Labs: Laboratory Tests Range/Units 07/03/23 07/04/23 22:15 03:00 WBC (4.4-10.8) 10^3/uL 8.05 RBC (4.36-5.78) 10^6/uL 5.45 Hgb (13.5-17.5) g/dL 14.0 Hct (40.0-50.0) % 44.0 MCV (80-95) fL 81 MCH (27.0-33.0) pg 25.7 L MCHC (32.0-36.0) % 31.8 L RDW (11.8-14.1) % 14.5 H Plt Count (130-400) 10^3/uL 242 MPV (8.0-11.0) fL 9.4 Immature Gran % 0.1 Neutrophils % 67.0 Lymphocytes % 27.3 Monocytes % 4.5 Eosinophils % 0.6 Basophils % 0.5 Nucleated RBC % (0.0-0.3) % 0.0 Absolute Neutrophils (1.2-6.7) 10^3/uL 5.39 Absolute Lymphocytes (1.2-3.4) 10^3/uL 2.20 Absolute Monocytes (0.1-0.8) 10^3/uL 0.36 Absolute Eosinophils (0.0-0.7) 10^3/uL 0.05 Absolute Basophils (0.0-0.2) 10^3/uL 0.04 VBG pH (7.31-7.41) 7.40 VBG pCO2 (41-51) mmHg 46 VBG pO2 mmHg 37 VBG HCO3 (23-28) mmol/L 28 VBG Total CO2 (24-29) mmol/L 25 VBG O2 Saturation % 73 VBG Base Excess (-2-3) mmol/L 3 VBG Lactate (0.6-1.4) mmol/L 0.7 Sodium (136-145) mmol/L 141 Cancelled Potassium (3.5-5.1) mmol/L 3.9 Cancelled Chloride (98-107) mmol/L 103 Cancelled Carbon Dioxide (21.0-32.0) mmol/L 26.1 Cancelled Anion Gap (3-11) mmol/L 11.9 H Cancelled BUN (7-18) mg/dL 12 Cancelled Creatinine (0.70-1.30) mg/dL 1.0 Cancelled Est GFR (CKD-EPI 2020) (mL/min/1.73m2) 106.45 Cancelled Glucose (74-106) mg/dL 99 Cancelled Calcium (8.5-10.1) mg/dL 9.4 Cancelled Total Bilirubin (0.2-1.0) mg/dL 0.3 Cancelled AST (15-37) U/L 21 Cancelled ALT (16-63) U/L 60 Cancelled Alkaline Phosphatase (46-116) U/L 104 Cancelled Total Protein (6.4-8.2) g/dL 8.3 H Cancelled Albumin (3.4-5.0) g/dL 4.3 Cancelled Quality:SDOH Health Related Social Needs: Health related social needs details Likely opiate use disorder PFSH All Active Problems (Updated 07/04/23 @ 00:27 by Ana Lilia Lopez MD) Accidental ingestion of caustic alkali (Acute) Gonorrhea (Acute) COVID-19 (Acute) Social History Smoking/Tobacco Use Status: Current-Occasional Tobacco Type: cigarettes Smoking risk assessment performed?: Yes Alcohol Intake: never Drug use: Occasionally Substance use type: marijuana Do you feel safe at home: Yes Do you feel safe in your relationship?: Yes
[2023-07-03 22:16] LABS: BE (Venous) 3 mmol/L (-2-3); HCO3 (Venous) 28 mmol/L (23-28); O2 Sat (Venous) 73 %; TCO2 (Venous) 25 mmol/L (24-29); pCO2 (Venous) 46 mmHg (41-51); pO2 (Venous) 37 mmHg
[2023-07-03 22:18] LABS: Abs Immature Grans 0.01 10^3/uL (0.0-0.06); Absolute Basophil Count 0.04 10^3/uL (0.0-0.2); Absolute Eosinophil Count 0.05 10^3/uL (0.0-0.7); Absolute Monocyte Count 0.36 10^3/uL (0.1-0.8); Absolute Neutrophil Count 5.39 10^3/uL (1.2-6.7); Basophils % 0.5; Eosinophils % 0.6; Immature Grans % 0.1; Lymphocytes % 27.3; MCH 25.7 pg (27.0-33.0); MCHC 31.8 % (32.0-36.0); MCV 81 fL (80-95); MPV 9.4 fL (8.0-11.0); Monocytes % 4.5; Platelet Count 242 10^3/uL (130-400); RBC 5.45 10^6/uL (4.36-5.78); RDW 14.5 % (11.8-14.1); RDW-SD 41.9 fL; WBC 8.05 10^3/uL (4.4-10.8)
[2023-07-03 22:20] LABS: Lactate 0.7 mmol/L (0.6-1.4)
[2023-07-03 22:33] LABS: ALT 60 U/L (16-63); AST 21 U/L (15-37); Albumin 4.3 g/dL (3.4-5.0); Alkaline Phosphatase 104 U/L (46-116); Anion Gap 11.9 mmol/L (3-11); BUN 12 mg/dL (7-18); Bilirubin, Total 0.3 mg/dL (0.2-1.0); CO2 26.1 mmol/L (21.0-32.0); Calcium 9.4 mg/dL (8.5-10.1); Chloride 103 mmol/L (98-107); Estimated GFR 106.45 (mL/min/1.73m2); Glucose 99 mg/dL (74-106); Potassium 3.9 mmol/L (3.5-5.1); Sodium 141 mmol/L (136-145); Total Protein 8.3 g/dL (6.4-8.2)
[2023-07-03 22:44] VITALS: BP 135/77; PULSE 76; RESP 16; O2SAT 98
--- NOTE | 2023-07-03 22:48 | DI.VRAD_ITS ---
PROCEDURE INFORMATION: Exam: XR Chest Exam date and time: 07/03/2023 10:32 PM Age: 27 years old Clinical indication: Injury or trauma; Other: Bleach ingestion TECHNIQUE: Imaging protocol: Radiologic exam of the chest. Views: 2 views. COMPARISON: CR XR PORTABLE CHEST AP 05/02/2023 10:24 PM FINDINGS: Lungs: Unremarkable. No consolidation. Pleural spaces: Unremarkable. No pleural effusion. No pneumothorax. Heart/Mediastinum: Unremarkable. No cardiomegaly. Bones/joints: Unremarkable. IMPRESSION: No acute findings. Dictated and Authenticated by: Harsh Chavarria MD. Ordering:LANIE Sung MD
[2023-07-03 23:57] VITALS: BP 124/74; PULSE 78; RESP 16; O2SAT 97
== END 2023-07-04 00:35 | disposition left against medical advice (07) ==
PROVIDERS: Emergency Provider Student in an Organized Health Care Education/Training Program
DX: T54.91XA Toxic effect of unspecified corrosive substance, accidental (unintentional), initial encounter (principal); R00.1 Bradycardia, unspecified; F17.210 Nicotine dependence, cigarettes, uncomplicated; Y92.012 Bathroom of single-family (private) house as the place of occurrence of the external cause
CPT/HCPCS: 80053; 82805; 93005; 99285; 71046; 83605; 85025; 93010; 99284

== ENCOUNTER 2023-07-08 17:43 | Emergency (ER) | payer MEDICAID, SELFPAY ==
[2023-07-08 17:46] VITALS: BP 149/78; PULSE 79; RESP 18; TEMP 37; O2SAT 100
--- NOTE | 2023-07-08 21:48 | ED.GENADUL_ITS ---
Discharge Plan Disposition Patient Disposition: Home Condition: Stable Discharge Details Clinical Impression: STI (sexually transmitted infection) Primary Care Provider: Unknown,Unknown ED Provider: Roberto Jones Home Meds and New Rx's Prescriptions: No Action No Known Home Meds Discharge Instructions Additional Instructions: always wear condoms Discharge Data Discharge Date/Time-TO BE ENTERED AT DEPARTURE: 07/08/23 17:59 HPI General Date/Time Provider Initiated Documentation: 07/08/23 17:50 . Limitations to Documentation: no limitations . Information obtained by: patient . HPI Narrative: 27-year-old gentleman Virgilio presents to the emergency department with concern for possible STI exposure. Patient and his partner both tested positive for g onorrhea. They have both been treated twice during this time. They are concerned today because they had sex before the allotted time that they were told to wait. He is asymptomatic. Related Data Home Medications Medication Instructions Recorded Confirmed Unknown [No Known Home Meds] 05/02/23 07/08/23 Allergies Allergy/AdvReac Type Severity Reaction Status Date / Time No Known Allergies Allergy Unverified 07/08/23 17:48 General Stated Complaint: GenMedical BRITT: 4 Exam Narrative Exam Narrative: Review of Systems: All systems reviewed & are unremarkable except as noted in HPI and below Well-developed, no acute distress NCAT PERRL, normal conjunctiva RRR Unlabored respiratory effort Nondistended abdomen Extremities w/o deformity, no cyanosis, no edema No rashes or lesions. no focal neurologic deficits Appropriate mood and affect Course Vital Signs Vital signs: Vital Signs Temperature 37.0 C 07/08/23 17:46 Pulse 79 07/08/23 17:46 Respiratory Rate 18 07/08/23 17:46 Blood Pressure 149/78 H 07/08/23 17:46 Pulse Oximetry 100 07/08/23 17:46 Temperature 37.0 C 07/08/23 17:46 Temperature Source Skin 07/08/23 17:46 Pulse 79 07/08/23 17:46 Respiratory Rate 18 07/08/23 17:46 Respiratory Effort Normal, Non-Labored 07/08/23 17:51 Blood Pressure 149/78 H 07/08/23 17:46 Blood Pressure Position Sitting 07/08/23 17:46 Pulse Oximetry 100 07/08/23 17:46 Oxygen Delivery Method Room Air 07/08/23 17:46 Oxygen Flow Rate 0 04/02/24 17:46 Pain Level 0 07/08/23 17:46 Medical Decision Making Patient presents requesting repeat and treatment of his gonorrhea infection. He did test positive on June 26. He has been treated twice since that time as has his girlfriend. He is asymptomatic at this time I do not feel that further testing or treatment is indicated. They state that they only have intercourse with each other since this diagnosis. Advised follow-up with PCP as needed recommended condom use. Quality:SDOH Health Related Social Needs: Health related social needs details Likely opiate use disorder PFSH All Active Problems STI (sexually transmitted infection) (Acute) Accidental ingestion of caustic alkali (Acute) Gonorrhea (Acute) COVID-19 (Acute) Social History Smoking/Tobacco Use Status: Current-Occasional Tobacco Type: cigarettes Smoking risk assessment performed?: Yes Alcohol Intake: never Drug use: Occasionally Substance use type: marijuana Do you feel safe at home: Yes Do you feel safe in your relationship?: Yes
== END 2023-07-08 17:59 | disposition home or self-care (01) ==
LOC: ER 17:57
PROVIDERS: Emergency Provider Emergency Medicine
DX: Z20.2 Contact with and (suspected) exposure to infections with a predominantly sexual mode of transmission (principal); F17.210 Nicotine dependence, cigarettes, uncomplicated
CPT/HCPCS: 99282

== ENCOUNTER 2023-09-10 06:37 | Emergency (ER) | payer MEDICAID, SELFPAY ==
[2023-09-10 06:47] VITALS: BP 151/99; PULSE 61; RESP 16; TEMP 36.5; O2SAT 99
--- NOTE | 2023-09-10 06:59 | W.ED.GENAD ---
Discharge Plan Disposition Patient Disposition: Home Condition: Good Discharge Details Chief Complaint: Sorethroat Clinical Impression: Pharyngitis Primary Care Provider: Unknown,Unknown ED Provider: Kris Ortiz Home Meds and New Rx's Prescriptions: No Action No Known Home Meds Discharge Instructions Instructions: Pharyngitis (ED) Additional Instructions: At this time your strep test is negative. I suspect the cause of your symptoms is likely a virus. Please take Tylenol and Motrin as needed for pain. Please take 2 tablespoons of honey every 4-6 hours to help with the sore throat. If you notice any worsening of your symptoms, or any new symptoms such as vomiting, diarrhea, fever, chills, shortness of breath, chest pain, numbness, weakness, or fainting , please return immediately to the emergency department for reevaluation. Please follow up with your primary care provider as soon as possible for reassessment and reevaluation. As always, it was a pleasure participating in your medical care today. HPI General Date/Time Provider Initiated Documentation: 09/10/23 06:52. HPI Narrative: 27-year-old male presents today for sore throat. Patient states that for the last 3 days he has had a mild sore throat. He is worse with swallowing. He denies severe fatigue. He denies any chest pain or shortness of breath. His significant other also has a sore throat for the last 5 days. No other complaints at this time. No other modifying factors. Related Data Home Medications Medication Instructions Recorded Confirmed Unknown [No Known Home Meds] 05/02/23 09/10/23 Allergies Allergy/AdvReac Type Severity Reaction Status Date / Time No Known Allergies Allergy Unverified 09/10/23 06:46 General Stated Complaint: Sorethroat BRITT: 4 Review of Systems All systems reviewed & are unremarkable except as noted in HPI and below Exam Narrative Exam Narrative: 1.Const: Well-nourished, Well-developed, appearing stated age 2.Eyes: PERRL, no conjunctival injection, and symmetrical lids. 3.ENT: Atraumatic external nose and ears. Moist MM. Neck: Symmetric, trachea midline, No thyromegaly. Mild erythema in the posterior oropharynx. Enlarged tonsils bilaterally, tonsils are grade 2 in size. No tonsillar exudates. No evidence of peritonsillar abscess or swelling. 4.CVS: +S1/S2, No murmurs or gallops. Peripheral pulses 2+ and equal in all extremities. Brisk capillary refill in all extremities. 5.RESP: Unlabored respiratory effort. Clear to auscultation bilaterally. No wheezes rales or rhonchi 6.GI: Soft, Nontender/Nondistended, No hepatosplenomegaly. No guarding or rebound. 7.MSK: Normocephalic/Atraumatic, Extremities w/o deformity or ttp No cyanosis or clubbing, Normal movement of all extremities 8.Skin: Warm, Dry. No rashes or lesions. 9.Neuro: yeast supervisor II-XII grossly intact. Sensation grossly intact, no focal neurologic deficits. 10.Psych: (AAO) x3. Appropriate mood and affect Course Vital Signs Vital signs: Vital Signs Temperature 36.5 C 09/10/23 06:47 Pulse 61 09/10/23 06:47 Respiratory Rate 16 09/10/23 06:47 Blood Pressure 151/99 H 09/10/23 06:47 Pulse Oximetry 99 09/10/23 06:47 Temperature 36.5 C 09/10/23 06:47 Temperature Source Temporal Artery Scan 09/10/23 06:47 Pulse 61 09/10/23 06:47 Respiratory Rate 16 09/10/23 06:47 Respiratory Effort Normal, Non-Labored 09/10/23 06:58 Blood Pressure 151/99 H 09/10/23 06:47 Blood Pressure Position Sitting 09/10/23 06:47 Pulse Oximetry 99 09/10/23 06:47 Oxygen Delivery Method Room Air 09/10/23 06:47 Oxygen Flow Rate 0 09/10/23 06:47 Pain Level 7 09/10/23 06:47 Medical Decision Making 27-year-old male presents today for sore throat. Patient states that for the last 3 days he has had a mild sore throat. He is worse with swallowing. He denies severe fatigue. He denies any chest pain or shortness of breath. His significant other also has a sore throat for the last 5 days. No other complaints at this time. No other modifying factors. Exam demonstrates swollen tonsils grade 2 in the posterior oropharynx, no significant cervical lymphadenopathy. Lungs are clear. No other abnormalities. Vital signs stable. Suspect viral upper respiratory infection versus strep throat. Patient states that he has had large tonsils before and was actually supposed to have a tonsillectomy but never got it done. Strep test negative. Suspect viral upper respiratory infection. Will recommend continued NSAID therapy at home and supportive care. Significant other Monospot test negative. I have extensively reviewed the treatment plan and discharge instructions with the patient. I have addressed all patient concerns at this time. The patient was made aware of what symptoms to monitor for that would warrant a return to the emergency department. Discussed the plan with the patient, they demonstrate verbal understanding and agreement with our assessment and plan at this time. The documentation in this chart was dictated using [employer] dictation software. Please excuse any dictation errors. Quality:SDOH Health Related Social Needs: Health related social needs details Likely opiate use disorder PFSH All Active Problems (Updated 09/10/23 @ 07:25 by Kris Ortiz DO) Pharyngitis (Acute) COVID-19 (Acute) Social History Smoking/Tobacco Use Status: Current-Occasional Tobacco Type: cigarettes Smoking risk assessment performed?: Yes Alcohol Intake: never Drug use: Occasionally Substance use type: marijuana Housing: apartment Do you feel safe at home: Yes Do you feel safe in your relationship?: Yes
== END 2023-09-10 07:32 | disposition home or self-care (01) ==
LOC: ER 07:30
PROVIDERS: Emergency Provider Student in an Organized Health Care Education/Training Program
DX: J02.9 Acute pharyngitis, unspecified (principal); F17.210 Nicotine dependence, cigarettes, uncomplicated
CPT/HCPCS: 87880; 99282; 87081; 99283

== ENCOUNTER 2023-09-15 18:08 | Emergency (ER) | payer MEDICAID, SELFPAY ==
[2023-09-15 18:13] VITALS: BP 174/88; PULSE 59; RESP 18; TEMP 35.8; O2SAT 100
--- NOTE | 2023-09-15 18:42 | ED.GENADUL_ITS ---
Discharge Plan Disposition Patient Disposition: Home Condition: Stable Discharge Details Clinical Impression: Screen for STD (sexually transmitted disease) Primary Care Provider: Unknown,Unknown ED Provider: Chandrika Miller Home Meds and New Rx's Prescriptions: No Action No Known Home Meds Discharge Instructions Additional Instructions: The results of your STD testing should result within the next 3 to 4 days, recommendation to refrain from sexual activity until the results have returned Recommendation to practice safe sexual practices and use of barrier method to p revent STDs Please return earlier should he have new or worsening complaints Discharge Data Discharge Date/Time-TO BE ENTERED AT DEPARTURE: 09/15/23 19:17 HPI General Date/Time Provider Initiated Documentation: 09/15/23 18:18 . HPI Narrative: This 27-year-old male presents with report of requesting testing for gonorrhea. States he was +3 months ago. Same partner but not using protection. Denies any symptoms. Related Data Home Medications Medication Instructions Recorded Confirmed Unknown [No Known Home Meds] 05/02/23 09/15/23 Allergies Allergy/AdvReac Type Severity Reaction Status Date / Time No Known Allergies Allergy Unverified 09/10/23 06:46 General Stated Complaint: Male Reproductive Problem BRITT: 4 Course Vital Signs Vital signs: Vital Signs Temperature 35.8 C L 09/15/23 18:13 Pulse 59 L 09/15/23 18:13 Respiratory Rate 18 09/15/23 18:13 Blood Pressure 174/88 H 09/15/23 18:13 Pulse Oximetry 100 09/15/23 18:13 Temperature 35.8 C L 09/15/23 18:13 Temperature Source Skin 09/15/23 18:13 Pulse 59 L 09/15/23 18:13 Respiratory Rate 18 09/15/23 18:13 Respiratory Effort Normal 09/15/23 18:14 Blood Pressure 174/88 H 09/15/23 18:13 Blood Pressure Position Sitting 09/15/23 18:13 Pulse Oximetry 100 09/15/23 18:13 Oxygen Delivery Method Room Air 09/15/23 18:13 Oxygen Flow Rate 0 09/15/23 18:13 Medical Decision Making 27-year-old male no acute distress, urinalysis for gonorrhea and chlamydia pe nding. Asymptomatic we will hold on treatment at this time. Return precautions reviewed and patient expressed understanding Quality:SDOH Health Related Social Needs: Health related social needs details Likely opiate use disorder PFSH All Active Problems (Updated 09/15/23 @ 18:43 by DEVON Roman) Screen for STD (sexually transmitted disease) (Acute) Pharyngitis (Acute) COVID-19 (Acute) Social History Smoking/Tobacco Use Status: Current-Occasional Tobacco Type: cigarettes Smoking risk assessment performed?: Yes Alcohol Intake: never Drug use: Occasionally Substance use type: marijuana Housing: apartment Do you feel safe at home: Yes Do you feel safe in your relationship?: Yes
[2023-09-17 15:37] LABS: Chlamydia Result Negative (Negative); GC Result Negative (Negative)
== END 2023-09-15 19:17 | disposition home or self-care (01) ==
PROVIDERS: Emergency Provider Physician Assistant
DX: Z11.3 Encounter for screening for infections with a predominantly sexual mode of transmission (principal); F17.210 Nicotine dependence, cigarettes, uncomplicated
CPT/HCPCS: 87491; 87591; 99283

== ENCOUNTER 2023-10-04 18:30 | Emergency (ER) | payer MEDICAID, SELFPAY ==
[2023-10-04 18:32] VITALS: BP 144/89; PULSE 64; RESP 14; TEMP 36.9; O2SAT 100
[2023-10-04 18:37] VITALS: BP 144/89; PULSE 64; RESP 14; TEMP 36.9; O2SAT 100
--- NOTE | 2023-10-04 18:57 | ED.GENADUL_ITS ---
Discharge Plan Disposition Patient Disposition: Home Discharge Details Clinical Impression: Otalgia ED Provider: Chandrika Miller Home Meds and New Rx's Prescriptions: No Action No Known Home Meds Discharge Instructions Instructions: Ear Pain ED Additional Instructions: Take pseudoephedrine for the next several days as a decongestant to help drain the fluid You received a single dose of steroid, this may also help with allowing the fluid to drain Can take ibuprofen and Tylenol as needed for pain he can also use Afrin nasal spray Should he have persistent and worsening pain, fever please return immediately for reassessment HPI General Date/Time Provider Initiated Documentation: 10/04/23 18:44 . HPI Narrative: This 27-year-old male presents with report of left ear pain in the presence of recent viral upper respiratory infection. Patient states pain has been inconsistent. Denies fever or chills. Denies any additional complaints at this time. Related Data Home Medications Medication Instructions Recorded Confirmed Unknown [No Known Home Meds] 05/02/23 10/04/23 Allergies Allergy/AdvReac Type Severity Reaction Status Date / Time No Known Allergies Allergy Unverified 10/04/23 18:35 General Stated Complaint: EarProblem BRITT: 4 Exam Narrative Exam Narrative: Fluid behind bilateral TMs, no erythema, no mastoid tenderness, no drainage appreciated, no pruritus, oropharynx patent, uvula midline Course Vital Signs Vital signs: Vital Signs Temperature 36.9 C 10/04/23 18:32 Pulse 64 10/04/23 18:32 Respiratory Rate 14 10/04/23 18:32 Blood Pressure 144/89 H 10/04/23 18:32 Pulse Oximetry 100 10/04/23 18:32 Temperature 36.9 C 10/04/23 18:37 Temperature Source Temporal Artery Scan 10/04/23 18:37 Pulse 64 10/04/23 18:37 Respiratory Rate 14 10/04/23 18:37 Respiratory Effort Normal 10/04/23 18:51 Blood Pressure 144/89 H 10/04/23 18:37 Blood Pressure Position Sitting 10/04/23 18:37 Pulse Oximetry 100 10/04/23 18:37 Oxygen Delivery Method Room Air 10/04/23 18:37 Oxygen Flow Rate 0 10/04/23 18:37 Pain Level 8 10/04/23 18:37 Medical Decision Making 27-year-old male presenting with left ear pain. No evidence of infection, oropharynx patent, uvula midline, no erythema. No indication for antibiotics at this time. Will initiate pseudoephedrine and a single dose of steroid to help with drainage from ears. Return precautions reviewed and patient expressed understanding Quality:SDOH Health Related Social Needs: Health related social needs details Likely opiate use disorder PFSH All Active Problems (Updated 10/04/23 @ 18:54 by DEVON Roman) Otalgia (Acute) Screen for STD (sexually transmitted disease) (Acute) Pharyngitis (Acute) COVID-19 (Acute) Social History Smoking/Tobacco Use Status: Current-Occasional Tobacco Type: cigarettes Smoking risk assessment performed?: Yes Alcohol Intake: never Drug use: Occasionally Substance use type: marijuana Housing: apartment Do you feel safe at home: Yes Do you feel safe in your relationship?: Yes
[2023-10-04] MEDS: Dexamethasone 4 MG/ML VIAL PO (19:00)
== END 2023-10-04 19:00 | disposition home or self-care (01) ==
LOC: ER 19:09
PROVIDERS: Emergency Provider Physician Assistant
DX: H92.02 Otalgia, left ear (principal); H93.8X2 Other specified disorders of left ear
CPT/HCPCS: 99283; J1100

== ENCOUNTER 2023-10-17 17:38 | Emergency (ER) | payer MEDICAID, SELFPAY ==
[2023-10-17] VITALS (17 sets, daily range): BP systolic 114–149; BP diastolic 60–85; PULSE 48–59; RESP 12–16; TEMP 36.6; O2SAT 95–100
--- NOTE | 2023-10-17 17:50 | ED.GENADUL_ITS ---
Discharge Plan Disposition Patient Disposition: Home Condition: Stable Discharge Details Clinical Impression: Abdominal pain Primary Care Provider: None,None ED Provider: Harsh Jarquin Home Meds and New Rx's Prescriptions: New ondansetron 4 mg tablet,disintegrating 4 mg PO Q8H PRN (Reason: nausea and vomiting) Qty: 30 0RF Discharge Instructions Additional Instructions: Your blood work and CAT scan did not show any concerning findings If he still symptoms this week follow-up with your primary care provider To the emergency department if you feel more ill, have persistent vomiting or severe worsening pain HPI General Mode of arrival: ambulatory . Date/Time Provider Initiated Documentation: 10/17/23 17:40 . Limitations to Documentation: no limitations . Information obtained by: patient . History of Present Illness 27 year old M presents to the emergency department with the chief complaint of Abdominal pain, described as moderate, Quality is described as aching, and is localized to the abdomen. Patient reports no radiation. Patient started experiencing this hour(s) (2) and it has been constant. No relieving factors improve symptom(s), No exacerbating factors reported . Patient notes nausea/vomiting. Patient did receive the following treatments prior to arrival, none Related Data Home Medications ?Medication ?Instructions ?Recorded ?Confirmed ondansetron 4 mg disintegrating 4 mg PO Q8H PRN nausea and 10/17/23 tablet vomiting #30 tabs Previous Rx's ?Medication ?Instructions ?Recorded ondansetron 4 mg disintegrating 4 mg PO Q8H PRN nausea and 10/17/23 tablet vomiting #30 tabs Allergies Allergy/AdvReac Type Severity Reaction Status Date / Time No Known Allergies Allergy Unverified 10/17/23 17:42 General Stated Complaint: Abd Prob BRITT: 3 Review of Systems All systems reviewed & are unremarkable except as noted in HPI and below Constitutional Constitutional: Denies chills, Denies fever(s) and Denies weakness Cardiovascular Cardiovascular: Denies chest pain and Denies dyspnea Respiratory Respiratory: Denies cough and Denies dyspnea Gastrointestinal Gastrointestinal: Reports abdominal pain, Reports nausea and Reports vomiting Musculoskeletal Musculoskeletal: Denies joint swelling Neurologic Neurologic: Denies weakness Exam Const General: no acute distress Orientation: alert HENMT Head: normal to inspection Ears: external ears normal General nose exam: external nose normal Mouth: moist mucous membranes Eyes General: appearance normal, both eyes and all related structures Neck Neck: normal visual inspection Resp Effort & Inspection: normal respiratory effort and able to speak in complete sentences Cardio Rate: regular rate GI Palpation: soft and tender Skin General skin exam: no rashes or lesions noted Neuro General: patient alert and patient oriented x3 Extrem General: normal to inspection Psych Mental Status: mental status grossly normal Course Vital Signs Vital signs: Vital Signs Temperature 36.6 C 10/17/23 17:40 Pulse 55 L 10/17/23 17:40 Respiratory Rate 16 10/17/23 17:40 Blood Pressure 149/76 H 10/17/23 17:40 Pulse Oximetry 100 10/17/23 17:40 Temperature 36.6 C 10/17/23 17:40 Pulse 55 L 10/17/23 17:40 Respiratory Rate 16 10/17/23 17:40 Blood Pressure 149/76 H 10/17/23 17:40 Blood Pressure Position Sitting 10/17/23 17:40 Pulse Oximetry 100 10/17/23 17:40 Oxygen Delivery Method Room Air 10/17/23 17:40 Oxygen Flow Rate 0 10/17/23 17:40 Medical Decision Making 27-year-old male with no significant past medical history comes in with abdominal pain and nausea vomiting shortly after eating [place] food. He says he was feeling well all day when he finished eating [place] food which has never had issues before he started having mid to lower left abdominal pain. He also had nausea and 1 episode of vomiting. He denies any fevers, chest pain, difficulty breathing, urinary or bowel symptoms. He is alert and oriented on arrival, his abdomen is soft but is tender in the left lower quadrant and mid abdomen. Suspect this could be a food reaction but will check a CBC, CMP, lipase and CT abdomen pelvis to evaluate for possible diverticulitis. Feels significantly better and has no abdominal tenderness now, labs and imaging unremarkable. Suspect this could be food related illness he is stable for discharge and return precautions given Differential Diagnosis Differential Diagnosis: Food reaction, pancreatitis, diverticulitis Medical Records Medical records reviewed: Yes I reviewed the patient's medical records. Imaging Data Radiologic Study: Attestation: I personally reviewed and interpreted this imaging study as follows: Imaging: CT Scan Radiologist's impression: No acute findings Lab Data Lab results reviewed: Yes I reviewed the patient's lab results. Quality:SDOH Health Related Social Needs: Health related social needs details Likely opiate use disorder PFSH All Active Problems (Updated 10/17/23 @ 19:25 by Harsh Jarquin MD) Abdominal pain (Acute) Otalgia (Acute) COVID-19 (Acute) Social History Smoking/Tobacco Use Status: Current-Occasional Tobacco Type: cigarettes Smoking risk assessment performed?: Yes Alcohol Intake: never Drug use: Occasionally Substance use type: marijuana Housing: apartment Do you feel safe at home: Yes Do you feel safe in your relationship?: Yes
[2023-10-17 18:01] LABS: Abs Immature Grans 0.02 10^3/uL (0.0-0.06); Absolute Basophil Count 0.03 10^3/uL (0.0-0.2); Absolute Eosinophil Count 0.12 10^3/uL (0.0-0.7); Absolute Lymphocyte Count 1.71 10^3/uL (1.2-3.4); Absolute Monocyte Count 0.36 10^3/uL (0.1-0.8); Absolute Neutrophil Count 4.64 10^3/uL (1.2-6.7); Basophils % 0.4 %; Eosinophils % 1.7 %; HCT 41.9 % (40.0-50.0); HGB 13.8 g/dL (13.5-17.5); Immature Grans % 0.3 %; Lymphocytes % 24.9 %; MCH 26.6 pg (27.0-33.0); MCHC 32.9 % (32.0-36.0); MCV 81 fL (80-95); MPV 9.4 fL (8.0-11.0); Monocytes % 5.2 %; Neutrophils % 67.5 %; Platelet Count 244 10^3/uL (130-400); RBC 5.19 10^6/uL (4.36-5.78); RDW 13.8 % (11.8-14.1); RDW-SD 40.3 fL; WBC 6.88 10^3/uL (4.4-10.8)
[2023-10-17] MEDS: Normal Saline 1,000 ML 1000 ML IV (18:03)
[2023-10-17] MEDS: Droperidol 5 MG/2 ML VIAL 2.5 MG IVP (18:06)
[2023-10-17] MEDS: Ketorolac 15 MG/ML VIAL IVP (18:08)
[2023-10-17 18:16] LABS: ALT 42 U/L (16-63); Albumin 3.9 g/dL (3.4-5.0); Alkaline Phosphatase 105 U/L (46-116); BUN 13 mg/dL (7-18); Calcium 8.7 mg/dL (8.5-10.1); Chloride 101 mmol/L (98-107); Estimated GFR 106.45 (mL/min/1.73m2); Glucose 119 mg/dL (74-106); Lipase 27 U/L (16-77); Magnesium 1.5 mg/dL (1.8-2.4); Potassium 3.9 mmol/L (3.5-5.1); Sodium 136 mmol/L (136-145); Total Protein 8.3 g/dL (6.4-8.2)
[2023-10-17] MEDS: Omnipaque 350 MG/ML 100 ML BTL IJ (18:28)
[2023-10-17] MEDS: Normal Saline - Diluent 50 ML VIAL IJ (18:29)
--- NOTE | 2023-10-17 18:40 | DI.CT_ITS ---
Exam(s) CT ABDOMEN PELVIS W EXAM: CT ABDOMEN PELVIS W CLINICAL HISTORY: lower abdominal pain TECHNIQUE: Imaging Protocol: Axial computed tomography images with coronal and sagittal reformatted images were created and reviewed. CONTRAST MATERIAL: Intravenous: Omnipaque 350 Contrast volume:100 mL Oral: No COMPARISON: CT RENAL COLIC WO CONTRAST from 06/05/[address] CHEST PE CTA from 04/13/2023 FINDINGS: The examination is limited due to patient motion artifact. ABDOMEN: Lung Bases: Normal where visualized. Liver: Normal density. No measurable mass. Portal, Superior Mesenteric, and Splenic Veins: Unremarkable. Gallbladder and Biliary Tract: No radiodense calculus or dilation. Pancreas: Normal density, no abnormal calcifications or inflammatory process. Spleen: Normal. Adrenals: No masses seen. Kidneys: Normal size, contour and axis. No radiodense stones or obstructive uropathy. No masses seen. Abdominal Aorta: Abdominal portion non-dilated. Bowel: No obstruction or bowel wall thickening. Appendix is unremarkable. Peritoneal Cavity: No ascites, collection or mesenteric inflammatory response. No free air.There is again seen around metallic density in the right pelvis. This is unchanged. Lymph Nodes: Within normal limits. Bones: Within normal limits for the patient's age. Soft Tissues: There is a small fat containing umbilical hernia. PELVIS: Bladder: Symmetric distention, no gross wall thickening. Reproductive Organs: Unremarkable as visualized. Lymph Nodes: Within normal limits. Bones: Within normal limits for the patient's age. IMPRESSION: No acute abdominal or pelvic process. RADIATION DOSE DELIVERED: 1,149.88mGy.cm Total DLP DATA REPOSITORY: All CT scans at this facility are submitted to the National Radiology Data Registry (NRDR) Dose Index Registry (DIR) with the [employer] ([employer]). RADIATION OPTIMIZATION: All CT scans at this facility use at least one of these dose optimization te chniques: automated exposure control; mA and/or kV adjustment per patient size (includes targeted exa ms where dose is matched to clinical indication); or iterative reconstruction.
[2023-10-17 19:03] LABS: AST 23 U/L (15-37)
[2023-10-17 19:03] LABS: Bilirubin Negative (Negative); Blood Negative (Negative); Clarity Clear (Clear); Glucose Negative (Negative); Ketones Negative (Negative); Leukocyte Esterase Negative (Negative); Nitrite Negative (Negative); Urobilinogen 0.2 mg/dL (Up to 0.2)
[2023-10-17] MEDS: Ondansetron O.D.T. 4 MG TABEF, 3 TABS/BTL PO (19:28)
== END 2023-10-17 19:32 | disposition home or self-care (01) ==
PROVIDERS: Emergency Provider Emergency Medicine
DX: R10.30 Lower abdominal pain, unspecified (principal); R42 Dizziness and giddiness
CPT/HCPCS: 36415; 80053; 83690; 96361; 96374; 96375; 99285; 74177; 81003; 83735; 85025; 99283; J1790; J1885; J3490